=== PATIENT | male | born 1950 | race Caucasian/White ===

== ENCOUNTER 2018-07-18 07:30 | Inpatient (IN) | payer OTHER ==
[~2018-07-18] VITALS: Ht 175.3 cm; Wt 61.2 kg
[2018-07-18] MEDS ORDERED: FOLIC ACID1 MG PO (09:59)
[2018-07-18] MEDS ORDERED: BUSPIRONE HCL5 MG PO (09:59)
[2018-07-18] MEDS ORDERED: MELATONIN3 MG PO (10:00)
[2018-07-18] MEDS ORDERED: ISORBIDE PO (10:00)
[2018-07-18] MEDS ORDERED: TRAZODONE HCL100 MG PO (10:01)
[2018-07-18] MEDS ORDERED: METOPROLOL PO (10:01)
[2018-07-18] MEDS ORDERED: SERTRALINE HCL100 MG PO (10:02)
[2018-07-18] MEDS ORDERED: OMEPRAZOLE PO (10:02)
[2018-07-18] MEDS ORDERED: [UNRECOGNIZED DRUG - OTHER] PO (10:03)
[2018-07-18] MEDS ORDERED: ASPIR 8181 MG PO (10:10)
[2018-07-18] MEDS ORDERED: LYSIPLEX PLUS178 ML PO (10:11)
[2018-07-18] MEDS ORDERED: MELATONIN3 M3 PO (10:18)
[2018-07-18] MEDS ORDERED: PNEU16DI2 PO (10:19)
[2018-07-18] MEDS ORDERED: TRAZODONE HCL100 MG (10:19)
[2018-07-20] MEDS ORDERED: ISOSORBIDE MONO60 MG PO (07:59)
[2018-07-20] MEDS ORDERED: METOPROLOL TART25 MG PO (08:01)
[2018-07-20] MEDS ORDERED: OMEPRAZOLE20 M1 PO (08:02)
[2018-07-21] MEDS ORDERED: GAS-X125 MG PO (08:12)
[2018-07-21] MEDS ORDERED: CARAFATE1 GM/10 ML PO (08:12)
[2018-07-21] MEDS ORDERED: MIRALAX17 GM PO (08:13)
[2018-07-21] MEDS ORDERED: NEXIUM 24HR20 M1 PO (08:13)
[2018-07-21] MEDS ORDERED: PERCOCET 10-321 EACH PO (08:14)
== END 2018-07-21 12:28 | disposition home or self-care (01) | DRG 326 ==
LOC: EDSTATUS 07:30 → ADM 07:30 → O/R 07-20 05:25 → SURG 07-20 05:25
PROVIDERS: ADMIT Surgery
PROC: 0WUF4JZ Supplement Abdominal Wall with Synthetic Substitute, Percutaneous Endoscopic Approach (ICD-10-PCS; 2018-07-20)
PROC: 3E0F7GC Introduction of Other Therapeutic Substance into Respiratory Tract, Via Natural or Artificial Opening (ICD-10-PCS; 2018-07-20)
PROC: 0BUT4JZ Supplement Diaphragm with Synthetic Substitute, Percutaneous Endoscopic Approach (ICD-10-PCS; principal; 2018-07-20 08:00)
PROC: 0DS64ZZ Reposition Stomach, Percutaneous Endoscopic Approach (ICD-10-PCS; 2018-07-20 08:00)
DX: K44.0 Diaphragmatic hernia with obstruction, without gangrene (principal); K56.2 Volvulus; K42.0 Umbilical hernia with obstruction, without gangrene; J44.1 Chronic obstructive pulmonary disease with (acute) exacerbation; K42.9 Umbilical hernia without obstruction or gangrene; I25.10 Atherosclerotic heart disease of native coronary artery without angina pectoris; J44.9 Chronic obstructive pulmonary disease, unspecified; J45.40 Moderate persistent asthma, uncomplicated